=== PATIENT | female | born 1990 | race Caucasian/White ===

== ENCOUNTER 2016-06-09 16:56 | Observation (INO) | payer MEDICAID ==
[2016-06-09 17:45] LABS: URINE BILIRUBIN NEGATIVE (NEG); URINE BLOOD NEGATIVE (NEG); URINE GLUCOSE (UA) NEGATIVE (NEG); URINE KETONE NEGATIVE (NEG); URINE LEUKOCYTE ESTERASE POSITIVE (NEG); URINE NITRITE NEGATIVE (NEG); URINE PROTEIN SMALL (NEG)
[2016-06-09 17:50] LABS: URINE APPEARANCE HAZY; URINE COLOR YELLOW
[2016-06-09 17:52] LABS: URINE BACTERIA 1+; URINE RBC 0-1 /[HPF] (0-5)
[2016-06-09] MEDS ORDERED: PRENA1 CHEW TA1.4 M1 PO (18:04)
[2016-06-09] MEDS ORDERED: FLAGYL500 M1 PO (18:05)
[2016-06-09] MEDS ORDERED: PROTONIX40 M2 PO (18:05)
[2016-06-09] MEDS ORDERED: PROPRANOLOL HC120 M1 PO (18:06)
== END 2016-06-09 19:50 ==
LOC: LDR 16:56
PROVIDERS: ADMIT Obstetrics & Gynecology
DX: O99.89 Other specified diseases and conditions complicating pregnancy, childbirth and the puerperium (principal); M54.9 Dorsalgia, unspecified; R10.9 Unspecified abdominal pain; O23.43 Unspecified infection of urinary tract in pregnancy, third trimester; Z3A.32 32 weeks gestation of pregnancy; Z79.899 Other long term (current) drug therapy; Z88.0 Allergy status to penicillin; Z91.040 Latex allergy status; Z90.49 Acquired absence of other specified parts of digestive tract; Z90.89 Acquired absence of other organs; Z98.890 Other specified postprocedural states

== ENCOUNTER 2016-07-19 14:47 | Observation (INO) | payer MEDICAID ==
[~2016-07-19 14:47] MED LIST: FLAGYL500 M1 PO; PRENA1 CHEW TA1.4 M1 PO; PROPRANOLOL HC120 M1 PO; PROTONIX40 M2 PO
[2016-07-19] MEDS ORDERED: HYDROCODON-ACE1 EA16 PO (15:24)
== END 2016-07-19 17:30 ==
LOC: LDR 14:47
PROVIDERS: ADMIT Obstetrics & Gynecology
DX: O09.213 Supervision of pregnancy with history of pre-term labor, third trimester (principal); Z3A.38 38 weeks gestation of pregnancy; Z88.0 Allergy status to penicillin; Z79.899 Other long term (current) drug therapy

== ENCOUNTER 2016-07-24 19:59 | Inpatient (IN) | payer MEDICAID ==
[~2016-07-24 19:59] MED LIST changes: +HYDROCODON-ACE1 EA16 PO
[2016-07-24] MEDS ORDERED: MACROBID 100 M100 M1 PO (20:43)
[2016-07-25 08:03] LABS: CORD BLOOD PH ARTERIAL 7.31 Units (7.18-7.38)
[2016-07-26 06:02] LABS: BASO % 0.2 % (0-2); EOS % 1.7 % (0-7); EOSINOPHIL ABSOLUTE COUNT 0.2 tho/cmm (0.0-0.7); HCT-HEMATOCRIT 29.4 % (34.0-49.0); HGB-HEMOGLOBIN 9.8 gm/dl (12.0-15.5); IMMATURE GRANULOCYTES ABSOLUTE 0.05 tho/cmm (0-0.03); IMMATURE GRANULOCYTES PERCENT 0.4 % (0-0.3); LYMPH % 32.7 % (20-45); LYMPH ABSOLUTE COUNT 4.4 tho/cmm (0.8-4.5); MCH (MEAN CORPUSCULAR HGB) 31.1 pg (28.0-32.0); MCHC MEAN CORPUSCULAR HGB CONC 33.3 % (32.0-36.0); MCV (MEAN CELL VOLUME) 93.3 fl (82.0-96.0); MEAN PLATELET VOLUME 9.8 cmc (9.4-12.4); MONO % 7.7 % (0-12); NEUTROPHIL ABSOLUTE COUNT 7.7 tho/cmm (1.6-8.0); NEUTROPHIL-AUTOMATED 7.7 tho/cmm (1.6-8.0); NEUTROPHILS % 57.3 % (40-80); PLATELET COUNT 216 tho/cmm (150-450); RED BLOOD COUNT 3.15 mil/cmm (4.00-5.20); RED CELL DISTRIBUTION WIDTH 13.5 % (12.4-16.4); WHITE BLOOD COUNT 13.4 tho/cmm (4.0-10.0)
[2016-07-26] MEDS ORDERED: NORCO 5-325 TA1 EACH PO (08:58)
[2016-07-26] MEDS ORDERED: IBUPROFEN800 M1 PO (08:58)
== END 2016-07-26 13:45 | DRG 775 ==
LOC: LDR 19:59 → OBGD 07-25 10:30
PROVIDERS: Pediatrics; ADMIT Obstetrics & Gynecology
PROC: 3E0P7GC Introduction of Other Therapeutic Substance into Female Reproductive, Via Natural or Artificial Opening (ICD-10-PCS; 2016-07-24)
PROC: 10E0XZZ Delivery of Products of Conception, External Approach (ICD-10-PCS; principal; 2016-07-25)
PROC: 0HQ9XZZ Repair Perineum Skin, External Approach (ICD-10-PCS; 2016-07-25)
DX: O99.354 Diseases of the nervous system complicating childbirth (principal); D64.9 Anemia, unspecified; O99.02 Anemia complicating childbirth; O99.334 Smoking (tobacco) complicating childbirth; F17.210 Nicotine dependence, cigarettes, uncomplicated; O62.3 Precipitate labor; O99.89 Other specified diseases and conditions complicating pregnancy, childbirth and the puerperium; G43.909 Migraine, unspecified, not intractable, without status migrainosus; O70.0 First degree perineal laceration during delivery; G89.29 Other chronic pain; M54.9 Dorsalgia, unspecified; Z3A.40 40 weeks gestation of pregnancy; Z37.0 Single live birth
CPT/HCPCS: J2590; J2791